=== PATIENT | male | born 1990 | race Caucasian/White ===

== ENCOUNTER 2018-07-11 08:57 | Emergency (ER) | payer MEDICAID, OTHER ==
[~2018-07-11] VITALS: Ht 185.4 cm; Wt 65.9 kg
[2018-07-11 09:08] VITALS: BP 120/71
== END 2018-07-11 09:51 | disposition home or self-care (01) ==
LOC: ER 08:58
DX: M79.672 Pain in left foot (principal)
CPT/HCPCS: 73630; 99283

== ENCOUNTER 2023-11-26 09:23 | Outpatient (CLI) | payer OTHER | END 2023-11-26 23:59 | disposition home or self-care (01) | LOC: MRI02 09:23 | PROVIDERS: ATTEND Student in an Organized Health Care Education/Training Program | DX: S22.080D Wedge compression fracture of T11-T12 vertebra, subsequent encounter for fracture with routine healing (principal); R60.9 Edema, unspecified; X58.XXXD Exposure to other specified factors, subsequent encounter | CPT/HCPCS: 72148 ==